=== PATIENT | female | born 1985 | race African-American/Black ===

== ENCOUNTER 2017-01-10 17:16 | Emergency (ER) | payer MEDICARE, MEDICAID ==
[2017-01-10] MEDS ORDERED: LIDOCAINE 5% (700 MG) TRANSDERMAL ADH..PATCH TP ONE (17:40)
--- NOTE | 2017-01-10 18:32 | RADIOLOGY REPORT (SQ) ---
EXAM DESCRIPTION: SHOULDER RIGHT 2 OR MORE VIEWS COMPLETED DATE/TIME: 01/10/2017 6:03 pm REASON FOR STUDY: pain hx of sx COMPARISON: None. NUMBER OF VIEWS: Three views. TECHNIQUE: Internal rotation, external rotation, and Y view images acquired of the right shoulder. LIMITATIONS: None. FINDINGS: MINERALIZATION: Normal. BONES: Acute right distal clavicle fracture, with a small distal clavicle fragment attached to the a cromion at the AC joint. There is inferior displacement of the clavicle with respect to the AC joint . JOINTS: No glenohumeral dislocation. No widening at the AC joint. Distal clavicle fragment attac hed to the acromion at the AC joint. VISUALIZED LUNGS AND RIBS: No pneumothorax. No rib fracture. SOFT TISSUES: No radiopaque foreign body. OTHER: No other significant finding. IMPRESSION: Distal clavicle fracture. TECHNICAL DOCUMENTATION: JOB ID: [id number] [employer]- All Rights Reserved
--- NOTE | 2017-01-10 18:49 | ER Document Report ---
ED General - General Chief Complaint: Arm Pain Stated Complaint: RIGHT ARM PAIN Time Seen by Provider: 01/10/17 17:32 TRAVEL OUTSIDE OF THE [place] IN LAST 30 DAYS: No - HPI Patient complains to provider of: Right arm pain Notes: Patient with a history of rotator cuff surgery states recently moved back to the area to have a left knee did have a fall day prior to arrival however he is having right shoulder pain at the end of the shoulder. Denies any fever chills nausea vomiting patient states difficult to move her arm above 90 - Related Data Allergies/Adverse Reactions: No Known Allergies Allergy (Verified 08/11/15 12:12) Past Medical History - Social History Smoking Status: Current Every Day Smoker Chew tobacco use (# tins/day): No - 1 ppd Frequency of alcohol use: None Drug Abuse: None Family History: Reviewed & Not Pertinent - Past Medical History Cardiac Medical History: Reports: Hx Hypertension Renal/ Medical History: Denies: Hx Peritoneal Dialysis Skin Medical History: Reports Hx MRSA Past Surgical History: Reports: Hx Section - Immunizations Immunizations up to date: Yes Hx Diphtheria, Pertussis, Tetanus Vaccination: Yes Review of Systems - Review of Systems Constitutional: No symptoms reported EENT: No symptoms reported Cardiovascular: No symptoms reported Respiratory: No symptoms reported Gastrointestinal: No symptoms reported Genitourinary: No symptoms reported Female Genitourinary: No symptoms reported Musculoskeletal: Other - Right shoulder pain Skin: No symptoms reported Hematologic/Lymphatic: No symptoms reported Neurological/Psychological: No symptoms reported Physical Exam - Vital signs Vitals: Temp Pulse Resp BP Pulse Ox 98.9 F 76 16 136/89 H 99 01/10/17 17:24 01/10/17 17:24 01/10/17 17:24 01/10/17 17:24 01/10/17 17:24 Interpretation: Normal - General General appearance: Appears well, Alert - HEENT Head: Normocephalic, Atraumatic Eyes: Normal Pupils: PERRL - Respiratory Respiratory status: No respiratory distress Chest status: Nontender Breath sounds: Normal Chest palpation: Normal - Cardiovascular Rhythm: Regular Heart sounds: Normal auscultation Murmur: No - Abdominal Inspection: Normal Distension: No distension Bowel sounds: Normal Tenderness: Nontender Organomegaly: No organomegaly - Back Back: Normal, Nontender - Extremities General upper extremity: Normal inspection, Tender - Tenderness to palpation of the superior aspect of the right shoulder muscle on the clavicle., Normal color , Normal ROM, Normal temperature General lower extremity: Normal inspection, Nontender, Normal color, Normal ROM , Normal temperature, Normal weight bearing. No: Melanie's sign - Neurological Neuro grossly intact: Yes Cognition: Normal Orientation: AAOx4 Preston Coma Scale Eye Opening: Spontaneous Preston Coma Scale Verbal: Oriented Alyce Coma Scale Motor: Obeys Commands Preston Coma Scale Total: 15 Speech: Normal Motor strength normal: LUE, RUE, LLE, RLE Sensory: Normal - Psychological Associated symptoms: Normal affect, Normal mood - Skin Skin Temperature: Warm Skin Moisture: Dry Skin Color: Normal Course - Re-evaluation Re-evalutation: 01/10/17 20:42 X-ray shows signs of fracture. We will place the patient sling will give pain medication. Patient will be discharged home follow-up with orthopedics. - Vital Signs Vital signs: Temp Pulse Resp BP Pulse Ox 98.8 F 66 20 153/94 H 100 01/10/17 19:00 01/10/17 18:47 01/10/17 18:47 01/10/17 18:47 01/10/17 18:47 Discharge - Discharge Clinical Impression: Clavicle fracture Qualifiers: Encounter type: initial encounter Clavicle location: lateral end Fracture type : closed Fracture alignment: nondisplaced Laterality: right Qualified Code(s): S42.034A - Nondisplaced fracture of lateral end of right clavicle, initial encounter for closed fracture Condition: Good Disposition: HOME, SELF-CARE Instructions: Fractured Clavicle ([facility]), Oral Narcotic Medication ([facility]) Additional Instructions: Your x-ray today shows signs of a fracture at the end of your collarbone. We will place you in a sling at this time and give the pain medication he may still take Tylenol and Motrin for pain control. However recommend she follow- up with orthopedic doctor. Prescriptions: Hydrocodone/Acetaminophen [Hydrocodon-Acetaminophen 5-325] 1 each PO Q6 #20 tablet Ibuprofen [Motrin 600 Mg Tablet] 600 mg PO TID #60 tablet Forms: Return to Work Referrals: DESTINEE KEE MD [ACTIVE STAFF] - Follow up as needed
[2017-01-10 19:00] VITALS: BP 153/94
== END 2017-01-10 19:01 | disposition home or self-care (01) ==
LOC: ER 17:16
DX: S42.034A Nondisplaced fracture of lateral end of right clavicle, initial encounter for closed fracture (principal); M79.604 Pain in right leg; M25.511 Pain in right shoulder; F17.210 Nicotine dependence, cigarettes, uncomplicated; X58.XXXA Exposure to other specified factors, initial encounter
CPT/HCPCS: 99283; 73030; L3650

== ENCOUNTER 2017-04-01 12:06 | Emergency (ER) | payer MEDICARE, MEDICAID ==
[2017-04-01] MEDS ORDERED: LIDOCAINE 1%/EPINEPHRINE INJ 20 ML VIAL INJ ONE (13:01)
--- NOTE | 2017-04-01 13:02 | ER Document Report ---
ED Medical Screen (RME) - General Chief Complaint: Breast Lump Stated Complaint: BREAST PAIN Time Seen by Provider: 04/01/17 13:01 Notes: Patient is a 31-year-old female, past medical history prior axilla abscesses that required I&D, presents with 4 days of an abscess below her right breast. No history of diabetes. PE: 2 cm pointed abscess below right breast. I have greeted and performed a rapid initial assessment of this patient. A comprehensive ED assessment and evaluation of the patient, analysis of test results and completion of the medical decision making process will be conducted by additional ED providers. TRAVEL OUTSIDE OF THE [place] IN LAST 30 DAYS: No - Related Data Allergies/Adverse Reactions: No Known Allergies Allergy (Verified 08/11/15 12:12) Home Medications: Current Home Medications No Home Medications 04/01/17 [History] Past Medical History - Social History Frequency of alcohol use: None Drug Abuse: None - Past Medical History Cardiac Medical History: Reports: Hx Hypertension Renal/ Medical History: Denies: Hx Peritoneal Dialysis Skin Medical History: Reports Hx MRSA Past Surgical History: Reports: Hx Section - Immunizations Immunizations up to date: Yes Hx Diphtheria, Pertussis, Tetanus Vaccination: Yes Physical Exam - Vital signs Vitals: Temp Pulse Resp BP Pulse Ox 98.5 F 59 L 16 178/81 H 100 04/01/17 12:20 04/01/17 12:20 04/01/17 12:20 04/01/17 12:20 04/01/17 12:20 Course - Vital Signs Vital signs: Temp Pulse Resp BP Pulse Ox 98.5 F 59 L 16 178/81 H 100 04/01/17 12:20 04/01/17 12:20 04/01/17 12:20 04/01/17 12:20 04/01/17 12:20
--- NOTE | 2017-04-01 13:22 | ER Document Report ---
ED General - General Chief Complaint: Breast Lump Stated Complaint: BREAST PAIN Time Seen by Provider: 04/01/17 13:01 Notes: 31-year-old female presents with painful lump in the right breast for 3 days worsening. No redness. No drainage. No fever. No diabetes. History of axillary abscess.. TRAVEL OUTSIDE OF THE [place] IN LAST 30 DAYS: No - Related Data Allergies/Adverse Reactions: No Known Allergies Allergy (Verified 08/11/15 12:12) Past Medical History - Social History Smoking Status: Current Every Day Smoker Cigarette use (# per day): Yes Smoking Education Provided: Yes - The patient ED visit today was directly related to their abuse of tobacco. Frequency of alcohol use: None Drug Abuse: None Family History: Reviewed & Not Pertinent Patient has suicidal ideation: No Patient has homicidal ideation: No - Past Medical History Cardiac Medical History: Reports: Hx Hypertension Renal/ Medical History: Denies: Hx Peritoneal Dialysis Skin Medical History: Reports Hx MRSA Past Surgical History: Reports: Hx Section - Immunizations Immunizations up to date: Yes Hx Diphtheria, Pertussis, Tetanus Vaccination: Yes Review of Systems - Review of Systems Notes: REVIEW OF SYSTEMS GEN: Denies fever, chills, weight loss ENT: Denies sore throat, nasal discharge, ear pain EYES: Denies blurry vision, eye pain, discharge CV: Denies chest pain, palpitations, edema RESP: Denies cough, shortness of breath, wheezing GI: Denies abdominal pain, nausea, vomiting, diarrhea MSK: Denies joint pain/swelling, edema, SKIN: Right breast pain and abscess LYMPH: Denies swollen glands/lymph nodes NEURO: Denies headache, focal weakness or numbness, dizziness PSYCH: Denies depression, suicidal or homicidal ideation PHYSICAL EXAMINATION General: No acute distress, well-nourished Head: Atraumatic, normocephalic ENT: Mouth normal, oropharynx moist, lips normal Eyes: Conjunctiva normal, pupils equal, lids normal Neck: No JVD, supple, no guarding Resp: No resp distress, equal chest rise GI: Nondistended, no guarding Back: No midline or CVA tenderness Ext: No deformities, no edema Skin: 3 x 3 cm area of fluctuance and tenderness below the right breast Neuro: Awake, alert. Face symmetric. Physical Exam - Vital signs Vitals: Temp Pulse Resp BP Pulse Ox 98.5 F 59 L 16 178/81 H 100 04/01/17 12:20 04/01/17 12:20 04/01/17 12:20 04/01/17 12:20 04/01/17 12:20 Course - Re-evaluation Re-evalutation: 04/01/17 13:38 Right breast abscess with questionable surrounding cellulitis. No systemic illness. Incised and drained with loop drainage technique as above. Bactrim. Motrin. Follow-up primary care I have discussed with the patient there likely diagnosis, aftercare plan, follow -up plans and my usual and customary return precautions. They verbalized understanding of this. - Vital Signs Vital signs: Temp Pulse Resp BP Pulse Ox 98.5 F 59 L 18 178/81 H 100 04/01/17 12:20 04/01/17 12:20 04/01/17 13:20 04/01/17 12:20 04/01/17 12:20 Procedures - Incision and Drainage Right Lower Chest Time completed: 13:30 Type: Simple Anesthetic type: 1% Lidocaine mL's of anesthetic: 3 Blade size: 11 I&D procedure: Betadine prep applied, Other Incision Method: Incision made by scalpel Amount/type of drainage: 10 cc of pus Notes: 04/01/17 13:39 2 incisions made, stab incisions. Loculations broken up. Irrigated with Shur- Clens and saline. Loop drainage used. Discharge - Discharge Clinical Impression: Abscess of breast, left Condition: Good Disposition: HOME, SELF-CARE Instructions: Abscess ([facility]), Trimethoprim-Sulfa ([facility]) Prescriptions: Sulfamethoxazole/Trimethoprim [Bactrim Ds Tablet] 1 each PO BID #14 tablet
[2017-04-01 13:58] VITALS: BP 160/84
== END 2017-04-01 13:55 | disposition home or self-care (01) ==
LOC: ER 12:06
PROC: 0H9TXZZ (ICD-10-PCS; principal; 2017-04-01)
DX: N61.1 Abscess of the breast and nipple (principal); F17.210 Nicotine dependence, cigarettes, uncomplicated
CPT/HCPCS: 99283; 10140; J3490